=== PATIENT | male | born 1955 | race Caucasian/White ===

== ENCOUNTER → 2021-03-25 | Outpatient (CLI) | payer OTHER ==
--- NOTE | 2021-03-28 08:16 | PE ---
EXAMINATION TYPE: PET CT fusion whole body DATE OF EXAM: 03/25/2021 COMPARISON: Outside Low-dose lung screening CT March 11, [address] 2016[address] HISTORY: Recent weight loss. Solitary pulmonary nodule or abnormal CT with GI mass. TECHNIQUE: Following the intravenous administration of 8.53 mCi of F-18 FDG, whole body images are p erformed from the top of skull to the bottom of feet. Images are reviewed on the computer in the cor onal, axial, and sagittal planes. Reconstructed rotating images are created on independent workstati on and reviewed on the computer. A localization and attenuation correction CT is performed in conju nction with the PET scan. Blood glucose level equals 78. SCAN: Initial Scan FINDINGS: HEAD AND NECK: Mild left-sided masseter muscle uptake could reflect product of recent chewing. No ad ditional areas of abnormal hypermetabolic uptake. CHEST, MEDIASTINUM, AND HILAR REGION: Persistent masslike consolidation in the right lower lobe thoug h this is less central in position measuring 3.0 x 1.7 cm axial image 136 with max SUV of 4.24. New a dditional areas of groundglass opacity and nodularity surrounding this in the right lung base extendi ng anteriorly and laterally for reference axial image 133. No additional areas of abnormal hypermetabolic uptake. ABDOMEN AND PELVIS: No adrenal masses. Poorly distended stomach with mild nonspecific uptake, max SUV 4.29 on axial image 157. No additional areas of abnormal hypermetabolic uptake. OSSEOUS STRUCTURES: No areas of abnormal hypermetabolic uptake. Lower extremities: No abnormal hypermetabolic uptake. OTHER CT: Stable left apical scar like opacity axial image 94 from 2016 with adjacent linear scarring and subcentimeter calcified nodules. Severe three-vessel coronary artery calcification and/or stents . Stable mild cardiomegaly. Diverticula in the sigmoid colon. Scattered pelvic phleboliths. Slight scoliotic curvature IMPRESSION: Prior central cavitary lesion has completely resolved with new areas of Nodularity and/or nodular consolidation favoring postinfectious etiology. Correlate clinically. Follo w-up to resolution advised.
== END | disposition home or self-care (01) ==
LOC: RADPETMAIN 15:48
PROVIDERS: ATTEND Family Medicine
DX: D13.0 Benign neoplasm of esophagus (principal); R91.8 Other nonspecific abnormal finding of lung field
CPT/HCPCS: 78816; A9552